=== PATIENT | female | born 1990 | race Caucasian/White ===

== ENCOUNTER 2017-08-24 09:16 | Emergency (ER) | payer MEDICAID, SELFPAY ==
[2017-08-24 09:20] VITALS: BP 127/69; PULSE 89; RESP 16; TEMP 37.1; O2SAT 96; BMI 22.5
--- NOTE | 2017-08-24 09:26 | ED.RN ---
PT DOES NOT WANT FAMILY AWARE SHE IS HERE.
--- NOTE | 2017-08-24 09:52 | ED.VISSUMM ---
- ER Visit Summary Date of Service: 08/24/17 Chief Complaint: [Depression] History of Present Illness: The patient is a 27 F [presents to the emergency department with depression that is been increasing over the last month. Patient was seen yesterday at [facility] and had evaluation by crisis. Patient voluntarily wanted to be hospitalized at that time however prior to her transfer to psychiatric facility her came in and threatened to apparently divorce her if she went to the hospital and so she decided to go home instead. Patient tells me that prior to yesterday she had not slept in 4 days. Patient not eating and crying more than usual. Patient hearing voices but she really cannot understand what they are saying and she is also seeing shadows and flashes. Patient wonders if she is schizophrenic. She does not have a psychiatrist currently and is not being medicated for any psychiatric disorders. Patient does not say that she is suicidal but feels that if she snaps she would does not know what she will do. Patient denies feeling homicidal. She denies any recent illness.] Physical Examination: [HEENT-PERRLA, EOMI. Cranial nerves II through XII grossly intact. TMs clear. Mucous membranes moist. No adenopathy. Cardiovascular-regular rate and rhythm without murmur or ectopy Lungs-clear to auscultation, chest wall stable without crepitus or subcu emphysema Abdomen-normoactive bowel sounds, soft, nontender, no rebound or rigidity, no peritoneal signs. Extremities-intact ?4, normal range of motion, normal pulses, atraumatic] Patient with flat affect and somewhat tearful. Test Results: [All testing was done at [facility] yesterday no further testing was done in this emergency department.] Emergency Department Course and Treatment: [Patient currently being evaluated by crisis in our department and plan will be to transfer to psychiatric facility for further treatment and management.] Treatment Plan: [Transfer to psychiatric facility] Disposition: [Transfer] Impression: [Depression Psychosis] This note was generated with [employer] dictation software. It may contain incorrect words, spelling, and punctuation that were not noted in review of the chart prior to signing ED Disposition - Plan for ED Patient: Chief Complaint: Mental Health Referrals: Power Lakhani [Primary Care Provider] -
--- NOTE | 2017-08-24 09:56 | ED.DCSUM_ITS ---
- ER Visit Summary Date of Service: 08/24/17 Chief Complaint: [Depression] History of Present Illness: The patient is a 27 F [presents to the emergency department with depression that is been increasing over the last month. Patient was seen yesterday at [facility] and had evaluation by crisis. Patient voluntarily wanted to be hospitalized at that time however prior to her transfer to psychiatric facility her came in and threatened to apparently divorce her if she went to the hospital and so she decided to go home instead. Patient tells me that prior to yesterday she had not slept in 4 days. Patient not eating and crying more than usual. Patient hearing voices but she really cannot understand what they are saying and she is also seeing shadows and flashes. Patient wonders if she is schizophrenic. She does not have a psychiatrist currently and is not being medicated for any psychiatric disorders. Patient does not say that she is suicidal but feels that if she snaps she would does not know what she will do. Patient denies feeling homicidal. She denies any recent illness.] Physical Examination: [HEENT-PERRLA, EOMI. Cranial nerves II through XII grossly intact. TMs clear. Mucous membranes moist. No adenopathy. Cardiovascular-regular rate and rhythm without murmur or ectopy Lungs-clear to auscultation, chest wall stable without crepitus or subcu emphysema Abdomen-normoactive bowel sounds, soft, nontender, no rebound or rigidity, no peritoneal signs. Extremities-intact ?4, normal range of motion, normal pulses, atraumatic] Patient with flat affect and somewhat tearful. Test Results: [All testing was done at [facility] yesterday no further testing was done in this emergency department.] Emergency Department Course and Treatment: [Patient currently being evaluated by crisis in our department and plan will be to transfer to psychiatric facility for further treatment and management.] Treatment Plan: [Transfer to psychiatric facility] Disposition: [Transfer] Impression: [Depression Psychosis] This note was generated with [employer] dictation software. It may contain incorrect words, spelling, and punctuation that were not noted in review of the chart prior to signing ED Disposition - Plan for ED Patient: Chief Complaint: Mental Health Referrals: Power Lakhani [Primary Care Provider] -
--- NOTE | 2017-08-24 10:02 | ED.RN ---
GUSTAVO W/BRENDA PRESENT-REPORTS LABS NOT NEEDED D/T HAD THEM DONE YEST AT [facility].
[2017-08-24] MEDS: LORazepam 2 MG/ML Syringe IM (10:17)
[2017-08-24 12:05] VITALS: BP 127/80; PULSE 80; RESP 14; O2SAT 98
[2017-08-24 12:39] VITALS: BP 115/70; PULSE 75; RESP 12; O2SAT 99
== END 2017-08-24 12:46 ==
PROVIDERS: Emergency Provider Emergency Medicine; Family Provider Physician Assistant; PCP Physician Assistant
DX: F32.9 Major depressive disorder, single episode, unspecified (principal); F29 Unspecified psychosis not due to a substance or known physiological condition
CPT/HCPCS: 96372; 99284

== ENCOUNTER 2017-10-24 08:24 | Emergency (ER) | payer OTHER, MEDICAID, SELFPAY ==
[2017-10-24 08:24] VITALS: BP 102/58; PULSE 75; RESP 14; TEMP 36.3
[2017-10-24 08:25] VITALS: BP 102/58; PULSE 75; RESP 12; TEMP 36.3; BMI 23.8
--- NOTE | 2017-10-24 09:00 | ED.DCSUM_ITS ---
- ER Visit Summary Date of Service: 10/24/17 Chief Complaint: Ear pain and headache History of Present Illness: The patient is a 27 F who presents for right ear pain with a headache. Patient states for the last 2 months she has been having episodes of right ear pain that will eventually cause her to have a headache and feel lightheaded. She denies associated nausea and vomiting. She states it hurts when she puts a Q-tip in her ear. She also has pain radiating to the chest anterior to the ear over the TMJ joint. She denies any neck pain or stiffness, vision changes, fever, cough, congestion, chest pain or shortness of breath, abdominal pain or diarrhea. She states she is on the Mirena and she has no concern for . She had an episode of this pain today while at work, with the ear pain radiating into her head. She went to the bathroom and states she vomited and laid down next to the toilet because she did not feel well. A coworker came in and found her laying there and then told the boss that she had passed out. Patient denies any syncope. She wanted to go home but she states her boss insisted she come to the hospital to get checked out. Patient denies any alcohol or drug use. She smokes occasionally. Physical Examination: Vital signs: afebrile, hemodynamically stable, no hypoxia on room air General: well nourished, well developed, in no distress Skin: warm, dry, no rash, no pallor HEENT: normocephalic and atraumatic; no vesicular rash, TMs are clear and pearly with a light reflex, no swelling, erythema, maceration or exudate in the external ear canals. No periauricular lymphadenopathy. Cervical lymphadenopathy. Neck is supple and nontender. PERRL, EOMI, moist mucous membranes, mild tenderness over the TMJ. No evidence of lesions or gingival swelling in the oropharynx. No tonsillar swelling or exudate. Cardiovascular: regular rate and rhythm without murmurs, no peripheral edema, 2 + pulses all distal extremities Respiratory: No increased work of breathing, lungs are clear to auscultation bilaterally, no rales, rhonchi or wheezing Abdominal: Abdomen is soft, nontender with normoactive bowel sounds, no guarding or rebound, no masses MSK: Moves all extremities, no deformities, normal strength Neuro: Awake and alert, oriented ?4. No facial droop, sensation and motor function intact and symmetric Test Results: [] Emergency Department Course and Treatment: Patient is very well-appearing and has no concerning findings on her exam. Her intermittent ear pain resulting in headache sounds like it may be referred pain from her TMJ. We discussed treatment with anti-inflammatories. Patient adamantly denies any syncopal episode today and states she just laid down to rest. Patient was given a work note for the rest of the day. She was given a dose of naproxen and a prescription for the same. She was advised to follow-up with her primary care doctor and also her dentist for evaluation of her ear pain that may be related to her jaw. Patient was discharged home very well-appearing. 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 It may contain incorrect words, spelling, and punctuation that were not noted in review of the chart prior to signing ED Disposition - Plan for ED Patient: Disposition: Home or Assisted Living Chief Complaint: General Illness Instructions: ED TMJ Syndrome, ED Otitis Externa Prescriptions: Naproxen 500 mg PO BID PRN #20 tab PRN Reason: Pain Referrals: Zunilda Villalobos PA [Primary Care Provider] - 3-5 Days Additional Instructions: Your ear pain may be coming from your jaw. There is no evidence of skin infection in your ear canal. Please follow up with your dentist for an evaluation of your bite in your jaw. Use the naproxen as needed for any further pain and headache. If you have any worsening of your condition or any new concerning symptoms, please return immediately to the emergency department for another evaluation.
--- NOTE | 2017-10-24 09:03 | DCINST.ED_ITS ---
ED Disposition - Plan for ED Patient: Disposition: Home or Assisted Living Chief Complaint: General Illness Instructions: ED TMJ Syndrome, ED Otitis Externa Prescriptions: Naproxen 500 mg PO BID PRN #20 tab PRN Reason: Pain Referrals: Zunilda Villalobos PA [Primary Care Provider] - 3-5 Days Additional Instructions: Your ear pain may be coming from your jaw. There is no evidence of skin infection in your ear canal. Please follow up with your dentist for an evaluation of your bite in your jaw. Use the naproxen as needed for any further pain and headache. If you have any worsening of your condition or any new concerning symptoms, please return immediately to the emergency department for another evaluation.
[2017-10-24] MEDS: Naproxen 500 MG Tablet PO (09:19)
== END 2017-10-24 09:20 | disposition home or self-care (01) ==
PROVIDERS: Emergency Provider Emergency Medicine; Family Provider Physician Assistant; PCP Physician Assistant
DX: H92.01 Otalgia, right ear (principal); R51 Headache; R11.2 Nausea with vomiting, unspecified; F31.9 Bipolar disorder, unspecified; F17.200 Nicotine dependence, unspecified, uncomplicated; Z79.899 Other long term (current) drug therapy
CPT/HCPCS: 99282

== ENCOUNTER → 2018-01-16 16:00 | Outpatient (CLI) | payer MEDICAID, SELFPAY ==
[2018-01-23 14:40] LABS: HPV Reflexed? NOT INDICATED
== END ==
PROVIDERS: Family Provider Physician Assistant; PCP Physician Assistant; Referring Provider Obstetrics & Gynecology; Visit Provider Obstetrics & Gynecology
DX: Z12.4 Encounter for screening for malignant neoplasm of cervix (principal)
CPT/HCPCS: 88175; G0145